=== PATIENT | male | born 1940 | race Caucasian/White ===

== ENCOUNTER 2023-11-04 17:21 | Emergency (ER) | payer OTHER ==
[~2023-11-04] VITALS: Ht 177.8 cm; Wt 151.9 kg
[~2023-11-04 17:21] MED LIST: DICL75ER PO; DOXY100 PO; FLUT1DIS2 INH; FURO20 PO; MECL12.5 PO; MONT10T PO; PRED20 PO; SPIR25 PO; TAMSULOSIN HCL0.4 M1 PO; ZYRTEC10 M2 PO
[2023-11-04 18:05] LABS: BASOPHILS ABSOLUTE AUTO 0.07 K/mm3 (0.00-0.23); BASOPHILS PERCENT AUTO 1 % (0-2); EOSINOPHILS ABSOLUTE AUTO 0.32 K/mm3 (0.00-0.68); EOSINOPHILS PERCENT AUTO 3 % (0-6); Hematocrit 45.6 % (37.0-53.0); Hemoglobin 14.7 g/dL (13.5-17.5); IMMATURE GRAN ABSOLUTE AUTO 0.04 K/mm3 (0.00-0.10); IMMATURE GRAN PERCENT AUTO 0 % (0-1); LYMPHOCYTES ABSOLUTE AUTO 1.48 K/mm3 (0.84-5.20); LYMPHOCYTES PERCENT AUTO 16 % (21-46); MONOCYTES ABSOLUTE AUTO 1.37 K/mm3 (0.16-1.47); MONOCYTES PERCENT AUTO 15 % (4-13); Mean Corpuscular HGB 29.2 pg (26.0-34.0); Mean Corpuscular HGB Conc 32.2 g/dL (31.5-36.5); Mean Corpuscular Volume 91 fL (80-100); Mean Platelet Volume 10.9 fL (9.1-12.4); NEUTROPHILS ABSOLUTE AUTO 6.08 K/mm3 (1.96-9.15); NEUTROPHILS PERCENT AUTO 65 % (41-73); Platelet Count 276 K/mm3 (150-400); RDW Coefficient Variation 13.6 % (11.7-14.2); RDW Standard Deviation 45.6 fL (35.1-46.3); Red Blood Cell Count 5.04 M/mm3 (4.30-5.90); White Blood Cell Count 9.36 K/mm3 (4.00-11.30)
[2023-11-04 18:19] LABS: Influenza A, PCR NEGATIVE (NEGATIVE); Influenza B, PCR NEGATIVE (NEGATIVE); Resp Syncytial Virus, PCR NEGATIVE (NEGATIVE); SARS-Cov-2 (COVID-19) PCR, MMC NEGATIVE (NEGATIVE)
[2023-11-04 18:30] LABS: Albumin, Blood 3.5 g/dL (3.4-5.0); Bilirubin, Total 0.6 mg/dL (0.1-1.0); Bun/Creatinine Ratio 12.6 (12.0-20.0); Creatinine, Blood 0.88 mg/dL (0.60-1.20); Globulin, Blood 3.4 g/dL (2.2-4.0); Potassium, Blood 4.1 mmol/L (3.5-5.5); Total Protein, Blood 6.9 g/dL (6.4-8.2)
[2023-11-04] MEDS ORDERED: PRED20 PO (18:58)
[2023-11-04] MEDS ORDERED: AMOCLA875 PO (18:58)
[2023-11-04 19:00] VITALS: BP 148/70
[2023-11-04] MEDS ORDERED: PredniSONE 20 MG Tab PO ONE (19:00)
[2023-11-04] MEDS ORDERED: Amoxicillin/Clavulanate K 875 MG Tab PO ONE (19:00)
== END 2023-11-04 19:25 | disposition home or self-care (01) ==
LOC: ER 17:21
PROVIDERS: Student in an Organized Health Care Education/Training Program
DX: J20.9 Acute bronchitis, unspecified (principal); Z88.5 Allergy status to narcotic agent; Z79.899 Other long term (current) drug therapy; Z79.52 Long term (current) use of systemic steroids; J44.9 Chronic obstructive pulmonary disease, unspecified
CPT/HCPCS: 0241U; 71046; 80053; 83880; 85025; 93005; 93010; 99285-25; A9270; J7512

== ENCOUNTER 2024-09-03 15:23 | Emergency (ER) | payer SELFPAY ==
[~2024-09-03] VITALS: Ht 172.7 cm; Wt 147.4 kg
[~2024-09-03 15:23] MED LIST changes: +AMOCLA875 PO
[2024-09-03 15:31] VITALS: BP 175/83
[2024-09-03] MEDS ORDERED: Ipratropium/Albuterol SulF 2.5-0.5MG/3 ML Amp INH PRN (15:35)
[2024-09-03 16:02] LABS: BASOPHILS ABSOLUTE AUTO 0.05 K/mm3 (0.00-0.23); BASOPHILS PERCENT AUTO 1 % (0-2); EOSINOPHILS ABSOLUTE AUTO 0.08 K/mm3 (0.00-0.68); EOSINOPHILS PERCENT AUTO 1 % (0-6); Hematocrit 44.7 % (37.0-53.0); Hemoglobin 14.5 g/dL (13.5-17.5); IMMATURE GRAN ABSOLUTE AUTO 0.04 K/mm3 (0.00-0.10); IMMATURE GRAN PERCENT AUTO 1 % (0-1); LYMPHOCYTES ABSOLUTE AUTO 1.07 K/mm3 (0.84-5.20); LYMPHOCYTES PERCENT AUTO 14 % (21-46); MONOCYTES ABSOLUTE AUTO 1.27 K/mm3 (0.16-1.47); MONOCYTES PERCENT AUTO 16 % (4-13); Mean Corpuscular HGB 28.9 pg (26.0-34.0); Mean Corpuscular HGB Conc 32.4 g/dL (31.5-36.5); Mean Corpuscular Volume 89 fL (80-100); Mean Platelet Volume 10.8 fL (9.1-12.4); NEUTROPHILS ABSOLUTE AUTO 5.28 K/mm3 (1.96-9.15); NEUTROPHILS PERCENT AUTO 68 % (41-73); Platelet Count 246 K/mm3 (150-400); RDW Coefficient Variation 14.1 % (11.7-14.2); RDW Standard Deviation 45.2 fL (35.1-46.3); Red Blood Cell Count 5.02 M/mm3 (4.30-5.90); White Blood Cell Count 7.79 K/mm3 (4.00-11.30)
[2024-09-03 16:16] LABS: Albumin, Blood 3.5 g/dL (3.4-5.0); Albumin/Globulin Ratio 0.9 (0.8-1.8); Bilirubin, Total 0.8 mg/dL (0.1-1.0); Bun/Creatinine Ratio 13.7 (12.0-20.0); Calcium, Blood 8.7 mg/dL (8.5-10.1); Creatinine, Blood 0.87 mg/dL (0.60-1.20); Globulin, Blood 3.7 g/dL (2.2-4.0); Potassium, Blood 4.2 mmol/L (3.5-5.5); Total Protein, Blood 7.2 g/dL (6.4-8.2)
[2024-09-03] MEDS ORDERED: PredniSONE 20 MG Tab PO ONE (17:55)
[2024-09-03] MEDS ORDERED: Azithromycin 250 MG Tab PO ONE (17:55)
[2024-09-03] MEDS ORDERED: Zithromax250 MG PO (18:02)
[2024-09-03] MEDS ORDERED: Prednisone20 MG PO (18:02)
== END 2024-09-03 18:14 | disposition home or self-care (01) ==
LOC: ER 15:23
PROVIDERS: Emergency Medicine
DX: J44.1 Chronic obstructive pulmonary disease with (acute) exacerbation (principal); J06.9 Acute upper respiratory infection, unspecified; Z87.891 Personal history of nicotine dependence
CPT/HCPCS: 71046; 80053; 85025; 93005; 93010; 94640; 94664; 99285-25; A9270; J7512

== ENCOUNTER 2024-09-14 15:49 | Inpatient (IN) | payer OTHER ==
[~2024-09-14] VITALS: Ht 180.3 cm; Wt 102.1 kg
[~2024-09-14 15:49] MED LIST changes: +Prednisone20 MG PO; +Zithromax250 MG PO
[2024-09-14 16:45] LABS: Base Excess Venous 1.8 mmol/L; PCO2 Venous 45.2 mmHg (38-42); pH Blood Venous 7.38 (7.34-7.37)
[2024-09-14 16:48] LABS: BASOPHILS ABSOLUTE AUTO 0.08 K/mm3 (0.00-0.23); BASOPHILS PERCENT AUTO 0 % (0-2); EOSINOPHILS ABSOLUTE AUTO 0.11 K/mm3 (0.00-0.68); EOSINOPHILS PERCENT AUTO 0 % (0-6); Hematocrit 46.3 % (37.0-53.0); Hemoglobin 14.9 g/dL (13.5-17.5); IMMATURE GRAN ABSOLUTE AUTO 0.18 K/mm3 (0.00-0.10); IMMATURE GRAN PERCENT AUTO 1 % (0-1); LYMPHOCYTES ABSOLUTE AUTO 0.93 K/mm3 (0.84-5.20); LYMPHOCYTES PERCENT AUTO 4 % (21-46); MONOCYTES ABSOLUTE AUTO 1.58 K/mm3 (0.16-1.47); MONOCYTES PERCENT AUTO 6 % (4-13); Mean Corpuscular HGB 29.4 pg (26.0-34.0); Mean Corpuscular HGB Conc 32.2 g/dL (31.5-36.5); Mean Corpuscular Volume 92 fL (80-100); Mean Platelet Volume 10.8 fL (9.1-12.4); NEUTROPHILS PERCENT AUTO 88 % (41-73); Platelet Count 311 K/mm3 (150-400); RDW Coefficient Variation 14.5 % (11.7-14.2); RDW Standard Deviation 48.6 fL (35.1-46.3); Red Blood Cell Count 5.06 M/mm3 (4.30-5.90); White Blood Cell Count 24.68 K/mm3 (4.00-11.30)
[2024-09-14 17:05] LABS: Albumin, Blood 3.2 g/dL (3.4-5.0); Albumin/Globulin Ratio 0.8 (0.8-1.8); Bilirubin, Total 0.8 mg/dL (0.1-1.0); Bun/Creatinine Ratio 9.7 (12.0-20.0); Calcium, Blood 8.8 mg/dL (8.5-10.1); Creatinine, Blood 0.83 mg/dL (0.60-1.20); Globulin, Blood 3.9 g/dL (2.2-4.0); Potassium, Blood 4.3 mmol/L (3.5-5.5); Total Protein, Blood 7.1 g/dL (6.4-8.2)
[2024-09-14] MEDS ORDERED: WIXELA 250-501 EAC1 INH ×2 (17:22)
[2024-09-14 17:27] LABS: Influenza A, PCR NEGATIVE (NEGATIVE); Influenza B, PCR NEGATIVE (NEGATIVE); SARS-Cov-2 (COVID-19) PCR, MMC NEGATIVE (NEGATIVE)
[2024-09-14 17:30] LABS: Resp Syncytial Virus, PCR POSITIVE (NEGATIVE)
[2024-09-14] MEDS ORDERED: Ipratropium/Albuterol SulF 2.5-0.5MG/3 ML Amp INH ONE (17:50)
[2024-09-14] MEDS ORDERED: Lactated Ringer's 1,000 ML IV SCH (17:50)
[2024-09-14] MEDS ORDERED: Piperacillin/Tazobactam Sod 3.375 GM in NS 100 ML IV ONE (17:50)
[2024-09-14] MEDS ORDERED: NS 1,000 ML IV SCH (19:45)
[2024-09-14] MEDS ORDERED: Ondansetron HCl 2 MG / ML 2ML Vial IV PRN (19:50)
[2024-09-14] MEDS ORDERED: Albuterol 2.5 MG/3 ML VIAL INH PRN (19:50)
[2024-09-14] MEDS ORDERED: Ipratropium/Albuterol SulF 2.5-0.5MG/3 ML Amp INH SCH (19:50)
[2024-09-14] MEDS ORDERED: Acetaminophen 325 MG TABLET PO PRN (19:55)
[2024-09-14] MEDS ORDERED: Acetaminophen 500 MG Tab PO ONE (20:00)
[2024-09-14] MEDS ORDERED: Mometasone/Formoterol MDI 200/5 mcg 13 GM INH SCH (20:25)
[2024-09-14] MEDS ORDERED: FLU VACC TS2024-25(6MOS UP)/PF 45 MCG/0.5 ML SYRINGE IM ONE (21:00)
[2024-09-14] MEDS ORDERED: Doxycycline Hyclate 100 MG TAB PO SCH (21:00)
[2024-09-14 21:12] VITALS: BP 164/70
--- NOTE | 2024-09-15 03:44 | NUR ---
TOOK REPORT FROM ALECIA WOODARD AND ASSUMED CARE OF PT @ [id number].
[2024-09-15 04:50] VITALS: BP 155/64
[2024-09-15 05:25] LABS: BASOPHILS ABSOLUTE AUTO 0.07 K/mm3 (0.00-0.23); BASOPHILS PERCENT AUTO 0 % (0-2); EOSINOPHILS ABSOLUTE AUTO 0.08 K/mm3 (0.00-0.68); EOSINOPHILS PERCENT AUTO 0 % (0-6); Hematocrit 42.4 % (37.0-53.0); Hemoglobin 13.4 g/dL (13.5-17.5); IMMATURE GRAN ABSOLUTE AUTO 0.13 K/mm3 (0.00-0.10); IMMATURE GRAN PERCENT AUTO 1 % (0-1); LYMPHOCYTES PERCENT AUTO 4 % (21-46); MONOCYTES ABSOLUTE AUTO 2.14 K/mm3 (0.16-1.47); MONOCYTES PERCENT AUTO 10 % (4-13); Mean Corpuscular HGB 29.4 pg (26.0-34.0); Mean Corpuscular HGB Conc 31.6 g/dL (31.5-36.5); Mean Corpuscular Volume 93 fL (80-100); Mean Platelet Volume 11.2 fL (9.1-12.4); NEUTROPHILS ABSOLUTE AUTO 18.91 K/mm3 (1.96-9.15); NEUTROPHILS PERCENT AUTO 85 % (41-73); Platelet Count 267 K/mm3 (150-400); RDW Coefficient Variation 14.6 % (11.7-14.2); RDW Standard Deviation 50.4 fL (35.1-46.3); Red Blood Cell Count 4.56 M/mm3 (4.30-5.90); White Blood Cell Count 22.23 K/mm3 (4.00-11.30)
--- NOTE | 2024-09-15 05:43 | NUR ---
SHIFT SUMMARY NOC PT A/O X 4. PLEASANT AND COOPERATIVE WITH CARE. VSS. ADMIT FROM ED WITH ARF/PNA/RSV. PT ON 2L/NC SPO2 >92%, AND IS RA BASELINE. PT IS COUGHING UP LARGE OF AMOUNTS OF GREEN/YELLOW SPUTUM. NS INFUSING @ 100 ML/HR. PT HAS ABD HERNIA. PT USING URINAL INDEPENDENTLY IN BED. PT CURRENTLY RESTING WITH BED IN LOWEST POSITION, AND CALL LIGHT WITHIN REACH.
[2024-09-15 05:57] LABS: Bun/Creatinine Ratio 9.9 (12.0-20.0); Calcium, Blood 8.5 mg/dL (8.5-10.1); Creatinine, Blood 0.81 mg/dL (0.60-1.20)
[2024-09-15] MEDS ORDERED: Lactobacil 2-S.Thermo-Bifido 1 1 Cap PO SCH (06:00)
[2024-09-15 07:24] VITALS: BP 157/70
[2024-09-15] MEDS ORDERED: Enoxaparin 40 MG/0.4 ML SYR SC SCH (09:00)
[2024-09-15] MEDS ORDERED: CefTRIAXone Sodium 1,000 MG in NS 100 ML IV SCH (09:00)
[2024-09-15] MEDS ORDERED: Tamsulosin HCl 0.4 MG Cap PO SCH (09:00)
[2024-09-15 16:05] VITALS: BP 131/57
[2024-09-15] MEDS ORDERED: Loratadine 10 MG Tab PO PRN (16:20)
[2024-09-15] MEDS ORDERED: Meclizine HCl 25 MG Tab PO PRN (17:00)
--- NOTE | 2024-09-15 19:22 | NUR ---
SHIFT SUMMARY: PT A&O X4. PLEASANT AND COOPERATIVE WITH CARE. NO ACUTE CHANGES THIS SHIFT. PT REMAINS ON 2L NC. CONTINUES TO COUGH UP YELLOW/MULTANI SPUTUM. NS D/C THIS SHIFT. SPOKE WITH DR. MORAES REGARDING 1-2+ LOWER EXTREMITY EDEMA. PROVIDER ADDED HOME LASIX AND MEDICATIONS. CALL LIGHT IN REACH. BED IN LOWEST POSITION.
[2024-09-15 20:07] VITALS: BP 151/72
[2024-09-15] MEDS ORDERED: Magnesium Citrate 300 ML BTL PO PRN (20:40)
[2024-09-15] MEDS ORDERED: Guaifenesin/Dextromethorphan Syrup 5 ML UDC PO SCH (21:00)
[2024-09-16 02:26] VITALS: BP 159/70
[2024-09-16 06:29] LABS: Hematocrit 40.9 % (37.0-53.0); Mean Corpuscular HGB 29.2 pg (26.0-34.0); Mean Corpuscular HGB Conc 31.8 g/dL (31.5-36.5); Mean Corpuscular Volume 92 fL (80-100); Mean Platelet Volume 11.1 fL (9.1-12.4); Platelet Count 247 K/mm3 (150-400); RDW Coefficient Variation 14.6 % (11.7-14.2); RDW Standard Deviation 49.4 fL (35.1-46.3); Red Blood Cell Count 4.45 M/mm3 (4.30-5.90); White Blood Cell Count 14.78 K/mm3 (4.00-11.30)
--- NOTE | 2024-09-16 06:34 | NUR ---
Shift Summary Pt struggling with frequent cough, I called the hospitalist who ordered Mucinex BID. Pt states the one dose I gave him helped him sleep. Pt stated he has not had a BM for 3 days, the hospitalist ordered Mag Citrate which I gave the pt but he wishes ot drink it this AM and the bottle is still at his bedside. Pt felt some vertigo this AM and requested Meclizine, I gave this medication as ordered. He is AOx4, uses urinal independently. He had a difficult time sleeping d/t frequent need to urinate.
[2024-09-16 07:07] LABS: Bun/Creatinine Ratio 15.6 (12.0-20.0); Calcium, Blood 8.5 mg/dL (8.5-10.1); Creatinine, Blood 0.64 mg/dL (0.60-1.20); Potassium, Blood 4.1 mmol/L (3.5-5.5)
[2024-09-16 07:13] VITALS: BP 143/70
[2024-09-16] MEDS ORDERED: Montelukast Sodium 10 MG Tab PO SCH (09:00)
[2024-09-16] MEDS ORDERED: Spironolactone 25 MG Tab PO SCH (09:00)
[2024-09-16] MEDS ORDERED: DICLOFENAC 50 MG PO SCH (09:00)
[2024-09-16] MEDS ORDERED: Furosemide 40 MG Tab PO SCH (09:00)
--- NOTE | 2024-09-16 18:05 | NUR ---
SHIFT SUMMARY PT RECIEVING BREATHING TREATMENTS FROM RT, SEE EMAR. CONTINUES TO SAT IN THE 90S ON 3L O2 VIA NC.UP TO CHAIR MOST THE DAY. PT DID AMBULATE TO THE BATHROOM FOR A SHOWER. NO BM FOR 3 DAYS. BOWEL CARE REQUESTED AND ORDERED BY MD. RED AREA TO GROIN, MICONAZOLE POWDER REQUESTED AND ORDERED BY THE MD. NO OTHER ACUTE CHANGES IN ASSESSMENT AT THIS TIME. VS REVIEWED. CALL LIGHT IN REACH. DENIES OTHER NEEDS AT THIS TIME.
[2024-09-16 18:08] VITALS: BP 134/80
[2024-09-16 20:30] VITALS: BP 156/88
[2024-09-16] MEDS ORDERED: Sennosides 8.6 MG Tab PO SCH (21:00)
[2024-09-16] MEDS ORDERED: Miconazole Nitrate 2% 85 GM PWD TOP SCH (21:00)
[2024-09-16] MEDS ORDERED: Docusate Sodium 100 MG Cap PO SCH (21:00)
[2024-09-17 04:58] VITALS: BP 152/69
[2024-09-17 05:13] LABS: Hematocrit 40.9 % (37.0-53.0); Hemoglobin 13.2 g/dL (13.5-17.5); Mean Corpuscular HGB 29.5 pg (26.0-34.0); Mean Corpuscular HGB Conc 32.3 g/dL (31.5-36.5); Mean Corpuscular Volume 91 fL (80-100); Mean Platelet Volume 10.7 fL (9.1-12.4); Platelet Count 268 K/mm3 (150-400); RDW Coefficient Variation 14.5 % (11.7-14.2); RDW Standard Deviation 48.5 fL (35.1-46.3); Red Blood Cell Count 4.48 M/mm3 (4.30-5.90); White Blood Cell Count 12.01 K/mm3 (4.00-11.30)
[2024-09-17 05:38] LABS: Calcium, Blood 8.9 mg/dL (8.5-10.1); Creatinine, Blood 0.75 mg/dL (0.60-1.20)
--- NOTE | 2024-09-17 06:39 | NUR ---
SHIFT SUMMARY PT ALERT AND ORIENTED TIMES 4. PT ADMITTED FOR ACUTE RESPIRATORY FAILURE. ABLE TO MAKE NEEDS KNOWN, APPROPRIATE WITH CALL LIGHT. PT IS INDEPENDENT TO THE TOILET AND ABLE TO AMBULATE AROUND ROOM. PT IS RECEPTIVE TO CARE. PT LIKES TO SLEEP IN CHAIR RECLINER. BED IN LOW POSITION, CALL LIGHT WITHIN REACH, RAILS TIMES 2.
[2024-09-17 07:19] VITALS: BP 147/72
[2024-09-17] MEDS ORDERED: NS 250 ML IV PRN (08:30)
--- NOTE | 2024-09-17 11:57 | NUR ---
Keron (pt) was awake and alert and his Kaylene was at bedside. This abrasive water jet cutter operator as well as Chief Recordist Mamadou were present. Pt is dealing with complications related to RSV and sepsis. Pt immediately makes note of his beliefs : "I believe in miguel angel" Conducted life review. Pt recounts stories of the healing power of god and how this has spoken into his personal journey. Pt is unclear about when he'll be discharged but maintains an optimistic perspective supported by his darrell. Pt and his recount the positive spiritual care visits they've received in the past and verbally express gratitude for this visit. Prayed with pt and conveyed ongoing availibilty to pt and his .
[2024-09-17 16:00] VITALS: BP 141/74
--- NOTE | 2024-09-17 16:45 | NUR ---
SHIFT SUMMARY MR NICOLAS IS DOWN TO 1L NC, LOW 90S ON CONTINUOUS PULSE OX. PT HAS NOT HAD BM FOR 3 DAYS. HE SAID HE DOES NOT FEEL CONSTIPATED. HE TOOK COLACE BUT HAS DECLINED MAG CITRATE. ENCOURAGED TO DRINK FLUIDS AND TO MOVE AROUND MORE. HE SITS UP IN THE RECLINER A LOT, ABLE TO STAND INDEPENDENTLY. URINATES SMALL VOLUMES AT A TIME ~100ML AT A TIME. HE WALKS INTO THE BATHROOM WITH S/B ASSIST WITH CANE. PRODUCTIVE COUGH, THICK WHITE MUCUS. CALL LIGHT IN REACH.
[2024-09-17 20:34] VITALS: BP 147/69
--- NOTE | 2024-09-18 03:57 | NUR ---
SHIFT SUMMARY PATIENT HAS BEEN SLEEPING INTERMITTANTLY TONIGHT IN HIS RECLINER. CONTINUOUS PULSE OX REMAINS IN PLACE AND 02 SATURATIONS ARE REMAINING ABOVE 90 PERCENT WITH 1 LITER OF SUPPLEMENTAL 02. PATIENT IS ALERT AND ORIENTED X4. HE HAS HIS CALL LIGHT WITHIN REACH AND HIS BED ALARM IS SET. SAFETY PRECAUTIONS ARE BEING MAINTAINED.
[2024-09-18 08:05] VITALS: BP 124/70
--- NOTE | 2024-09-18 09:00 | NUR ---
pt sitting up in chair, a/ox4, pleasant and cooperative with care, follows commands well, denies pain, states his breathing is much better, on 1 liter 02 via n/c, resp even and unlabored at rest, reports productive cough of white sputum, but not today, hrr, 2+ edema noted to b/l le, pp+1, cap refill <3 sec, vs stable, afebrile, piv to lac site is clear and patent, btx4, reports hes' constipated, has a bottle of mag citrate he's working on, voids without diff, skin has scattered bruising, maew, ambulates with a walker, sba, vanessa, call light in reach.
[2024-09-18] MEDS ORDERED: DOXY100 PO ×2 (13:18)
[2024-09-18] MEDS ORDERED: MICONAZOLE NITR85 GM TOP ×2 (13:19)
[2024-09-18] MEDS ORDERED: [UNRECOGNIZED DRUG - OTHER] PO ×2 (13:20)
[2024-09-18] MEDS ORDERED: UP4 PROBIOTICS1 EAC8 PO ×2 (13:21)
[2024-09-18] MEDS ORDERED: CEFU500T30 PO ×2 (13:22)
[2024-09-18] MEDS ORDERED: ALBU8HFA2 INH ×2 (13:22)
[2024-09-18] MEDS ORDERED: IPRAT-ALBUT 0.5-3 ML INH ×2 (13:24)
--- NOTE | 2024-09-18 14:16 | NUR ---
Keron (pt) is awake and is preparing to discharge. PT recgonizes me and is grateful for a brief visit. Pt expresses that he has taken more steps today than usual. Prayed with pt and he thanked me for the prayer.
--- NOTE | 2024-09-18 15:30 | NUR ---
Pt has discharge orders, went over them with him and spouce, they verbalized understanding, piv removed inatct, new meds faxed to [facility], left via wheelchair with dental appliance repairer in attendence with all his belongings.
== END 2024-09-18 17:58 | disposition home or self-care (01) | DRG 871 ==
LOC: ER 15:49 → MEDS 19:44 → ENPENDDIS 09-18 11:08 → MEDS 09-18 17:48 → ENPENDDIS 09-18 17:53 → MEDS 09-18 17:58
PROVIDERS: Internal Medicine; Nurse Practitioner Acute Care; Student in an Organized Health Care Education/Training Program; ADMIT Internal Medicine
DX: A41.89 Other specified sepsis (principal); J12.1 Respiratory syncytial virus pneumonia; J96.01 Acute respiratory failure with hypoxia; J15.9 Unspecified bacterial pneumonia; J44.0 Chronic obstructive pulmonary disease with (acute) lower respiratory infection; E66.01 Morbid (severe) obesity due to excess calories; I50.9 Heart failure, unspecified; N40.0 Benign prostatic hyperplasia without lower urinary tract symptoms; Z99.81 Dependence on supplemental oxygen; Z88.5 Allergy status to narcotic agent; Z87.891 Personal history of nicotine dependence; Z79.899 Other long term (current) drug therapy; Z79.2 Long term (current) use of antibiotics; Z68.31 Body mass index [BMI] 31.0-31.9, adult
CPT/HCPCS: 0241U; 36415; 71045; 80048; 80053; 82803; 83605; 84145; 84484; 85025; 85027; 87040; 93005; 93010; 94640; 94664; 94760; 94761; 94762; 96360; 96361; 99285-25; A9270; J0696; J1650; J2543; J7030; J7050; J7120